=== PATIENT | female | born 1985 | race African-American/Black ===

== ENCOUNTER 2019-10-14 10:08 | Outpatient (CLI) | payer OTHER ==
--- NOTE | 2019-10-14 11:04 | MMO ---
Bilateral MAMMO Bilat Diag [facility]. CLINICAL HISTORY: Patient is 34 years old and is seen for diagnostic exam. The patient has no family history of breast cancer. The patient has no personal history of cancer. VIEWS: The views performed were: bilateral craniocaudal with tomosynthesis; bilateral mediolateral oblique with tomosynthesis; and bilateral mediolateral with tomosynthesis. FILMS COMPARED: The present examination has been compared to a prior imaging study performed at [facility] on 10/14/2019. This study has been interpreted with the assistance of computer-aided detection. MAMMOGRAM FINDINGS: There are scattered fibroglandular densities. No mammographic or sonograhic abnormality is seen at the site of palpable concern in the left breast (4:00). There are no suspicious masses, suspicious calcifications, or new areas of architectural distortion. IMPRESSION: THERE IS NO MAMMOGRAPHIC EVIDENCE OF MALIGNANCY. AGE APPROPRIATE SCREENING BASED ON RISK FACTORS IS RECOMMENDED. THE RESULTS OF THIS EXAM WERE SENT TO THE PATIENT. ACR BI-RADS Category 2 - Benign finding MAMMOGRAPHY NOTE: 1. A negative mammogram report should not delay a biopsy if a dominant of clinically suspicious mass is present. 2. Approximately 10% to 15% of breast cancers are not detected by mammography. 3. Adenosis and dense breasts may obscure an underlying neoplasm. Reported by: PAVAN TROY MD Electonically Signed: [id number]
--- NOTE | 2019-10-14 12:16 | ULT ---
LIMITED LEFT BREAST ULTRASOUND: Date: 10/14/2019 HISTORY: 34-year-old female with palpable abnormality at the 4 o'clock position of the left breast. FINDINGS: Correlation is made with the mammogram of the same date. Sonographic evaluation of the region of palpable concern at the 4 o'clock position of the left breast demonstrates no abnormality. IMPRESSION: BI-RADS Category 2 - Benign findings. Return to age-appropriate screening based on risk factors.
== END 2019-10-14 10:09 | disposition home or self-care (01) ==
LOC: BICMAMMO 10:08
PROVIDERS: ATTEND Physician Assistant
DX: N63.21 Unspecified lump in the left breast, upper outer quadrant (principal)
CPT/HCPCS: 77066; G0279